=== PATIENT | female | born 1950 | race Caucasian/White ===

== ENCOUNTER 2019-12-28 16:32 | Emergency (ER) | payer MEDICARE ==
[~2019-12-28] VITALS: Ht 152.4 cm; Wt 79.8 kg
[2019-12-28] MEDS ORDERED: LIDODERM1 EACH T (18:51)
== END 2019-12-28 19:40 | disposition home or self-care (01) ==
LOC: ED 16:32
DX: M17.11 Unilateral primary osteoarthritis, right knee (principal); I10 Essential (primary) hypertension; Z86.73 Personal history of transient ischemic attack (TIA), and cerebral infarction without residual deficits

== ENCOUNTER 2020-09-18 14:14 | Emergency (ER) | payer MEDICARE ==
[~2020-09-18] VITALS: Ht 149.8 cm; Wt 102.1 kg
[~2020-09-18 14:14] MED LIST: LIDODERM1 EACH T
== END 2020-09-18 16:15 | disposition home or self-care (01) ==
LOC: ED 14:14
DX: M79.18 Myalgia, other site (principal); I10 Essential (primary) hypertension; Z79.899 Other long term (current) drug therapy